=== PATIENT | male | born 1985 | race Caucasian/White ===

== ENCOUNTER 2021-11-12 22:32 | Emergency (ER) | payer MEDICAID, SELFPAY ==
[2021-11-12 22:34] VITALS: BP 99/60; PULSE 88; RESP 18; TEMP 37.6; O2SAT 99; BMI 25.8
--- NOTE | 2021-11-12 23:05 | PC.NURSE ---
Seizure pads put in place
--- NOTE | 2021-11-12 23:10 | PC.NURSE ---
Patient given IV toradol and po tylenol for fever along with 1000mL NS. Pt is resting in bed with lights off. States he just wants to sleep.
[2021-11-12 23:46] LABS: Coronavirus 19, PCR Not Detected (NotDetected); Influenza A, PCR Not Detected (NotDetected); Influenza B, PCR Not Detected (NotDetected)
[2021-11-12 23:47] LABS: Basophils # 0.1 K/mm3 (0-0.2); Basophils % 0.7 % (0.1-2.0); Eosinophils # 0.1 K/mm3 (0.0-0.4); Eosinophils % 0.3 % (0.1-12.0); Hemoglobin 15.8 g/dL (14.1-18.0); Lymphocytes # 1.2 K/mm3 (0.7-4.5); Lymphocytes % 6.3 % (10-50); Mean Corpuscular HGB Conc 32.8 g/dL (31.8-35.4); Mean Corpuscular Hemoglobin 28.8 pg (27.0-31.2); Mean Corpuscular Volume 87.7 fl (80-94); Mean Platelet Volume 8.7 fl (7.4-10.4); Monocytes # 1.2 K/mm3 (0.1-1.0); Neutrophils # 16.9 K/mm3 (1.8-7.8); Neutrophils % 86.7 % (37.0-80.0); Platelet Count 499 K/mm3 (142-424); Red Blood Count 5.48 M/mm3 (4.60-6.20); Red Cell Distribution Width 13.7 % (11.5-17.5); White Blood Count 19.5 K/mm3 (4.8-10.8)
[2021-11-12 23:50] LABS: MANUAL DIFFERENTIAL MANUAL DIFFERENTIAL (MANUAL DIFF)
[2021-11-12 23:51] LABS: Alanine Aminotransferase 51 U/L (12-78); Albumin Level 4.4 g/dl (3.5-5.0); Albumin/Globulin Ratio 1.2 (1.1-1.8); Alkaline Phosphatase 104 U/L (38-126); Anion Gap 9.7 mEq/L (5-15); Aspartate Amino Transferase 64 U/L (17-59); Bilirubin,Total 0.9 mg/dl (0.2-1.3); Blood Urea Nitrogen 19 mg/dl (9-20); Calcium 9.9 mg/dl (8.4-10.2); Carbon Dioxide 24 mmol/L (22.0-30.0); Chloride 107 mmol/L (98-107); Creatinine Clearance Estimated 125 mL/min (50-200); Estimated Glomerular Filt Rate 96 ml/min (>60); GFR (African American) 116 ML/MIN (>60); Globulin 3.7 g/dL (1.3-3.2); Glucose 109 mg/dl (74-100); Potassium 3.7 mmoL/L (3.5-5.1); Sodium 137 mmol/L (136-145); Total Protein,Serum 8.1 g/dl (6.3-8.2)
[2021-11-12 23:53] LABS: Lactic Acid 0.7 mmol/L (0.7-2.1)
[2021-11-12 23:56] LABS: C-Reactive Protein 1.8 mg/L (0-4)
[2021-11-12 23:57] LABS: Lymphocytes % 7 % (10-50); Monocytes % 3 % (2-9); Neutrophils % 81 % (42-76); Platelet Estimate Normal; RBC Morphology Normal; Total Cells Counted 100
[2021-11-12 23:58] LABS: Ethyl Alcohol < 10 mg/dl (0-10)
[2021-11-13 00:14] LABS: Erythrocyte Sedimentation Rate 2 mm/hr (0-15)
[2021-11-13 00:19] LABS: Acetaminophen 13 ug/ml (10-30); Salicylate < 1.0 mg/dL (2.0-20.0)
--- NOTE | 2021-11-13 00:38 | PC.NURSE ---
Pt given pillow for comfort and lights turned off per request.
--- NOTE | 2021-11-13 01:27 | [facility].EDSEIZ ---
ED Disposition Clinical Impression: IVDU (intravenous drug user), Seizure-like activity Disposition: Left Against Medical Advice Condition on Discharge: Good Instructions: DI for Seizure (Not Epilepsy/Seizure Disorder) Additional Instructions: see pcp in am or return to ed Referrals: Provider,Referral, [Primary Care Provider] - - Critical Care Critical Care Time: No Attestation: On 11/12/21, the high probability of a clinically significant, sudden or life threatening deterioration of the following system(s) required my full and direct attention, intervention and personal management. The time I documented below is in addition to time spent performing reported procedures but includes the following listed in this critical care notation. Medical Decision Making - Medical Records Medical records reviewed: Yes: I reviewed the patient's medical records. - Richard Inquiry Pt receiving controlled substance: No Vital Signs: 11/12/21 22:34 Temperature 99.7 F H Temperature Source Oral Pulse Rate [Apical] 88 Respiratory Rate 18 Blood Pressure [Right Arm] 99/60 L Blood Pressure Mean [Right Arm] 73 Blood Pressure Source [Right Arm] Automatic Cuff Blood Pressure Position [Right Arm] Sitting 02 Sat by Pulse Oximetry 99 Oxygen Delivery Method Room Air - Lab Data Lab results reviewed: Yes: I reviewed the patient's lab results. Lab Results 11/12/21 22:44: WBC 19.5 H, RBC 5.48, Hgb 15.8, Hct 48.0, MCV 87.7, MCH 28.8, MCHC 32.8, RDW 13.7, Plt Count 499 H, MPV 8.7, Neut % (Auto) 86.7 H, Lymph % (Auto) 6.3 L, [place] % (Auto) 6.0, Eos % (Auto) 0.3, Baso % (Auto) 0.7, Neut # (Auto) 16.9 H, Lymph # (Auto) 1.2, [place] # (Auto) 1.2 H, Eos # (Auto) 0.1, Baso # (Auto) 0.1, Total Counted 100, Neutrophils % (Manual) 81 H, Band Neutrophils % 9.0 H, Lymphocytes % (Manual) 7 L, Monocytes % (Manual) 3, Platelet Estimate Normal, RBC Morphology Normal, ESR 2 11/12/21 22:44: Sodium 137, Potassium 3.7, Chloride 107, Carbon Dioxide 24, Anion Gap 9.7, BUN 19, Creatinine 0.90, Estimated Creat Clear 125, Estimated GFR 96, Est GFR ( Amer) 116, Glucose 109 H, Calcium 9.9, Total Bilirubin 0.9, AST 64 H, ALT 51, Alkaline Phosphatase 104, C-Reactive Protein 1.8, Total Protein 8.1, Albumin 4.4, Globulin 3.7 H, Albumin/Globulin Ratio 1.2, Procalcitonin 45.0 H, Salicylates < 1.0 L, Acetaminophen 13 11/12/21 22:44: Lactate 0.7 11/12/21 22:44: SARS-CoV-2 (PCR) Not detected, Influenza A Untype (PCR) Not detected, Influenza Type B (PCR) Not detected 11/12/21 22:44: Plasma/Serum Alcohol < 10 Result diagrams: 11/12/21 22:44 11/12/21 22:44 Orders (Tests/Meds): ED MEDICATIONS Generic Name Dose Route Start Last Admin Trade Name Freq PRN Reason Stop Dose Admin Sodium Chloride 1,000 mls @ 999 mls/hr 11/12/21 23:15 11/12/21 23:04 Sod Chlor 0.9% 1000ml Bag IV 11/13/21 00:15 999 mls/hr .[id number] JHONAA Administration Discontinued Medications Generic Name Dose Route Start Last Admin Trade Name Freq PRN Reason Stop Dose Admin Acetaminophen 1,000 mg 11/12/21 23:01 11/12/21 23:04 Acetaminophen 500mg Tab PO 11/12/21 23:02 1,000 mg ONCE ONE Administration Ketorolac Tromethamine 30 mg 11/12/21 23:01 11/12/21 23:03 Ketorolac 30mg/Ml Vial IV 11/12/21 23:02 30 mg ONCE ONE Administration ORDERS Category Date Time Status CT cervical spine w con Stat Cat Scan 11/13/21 01:[address] head/brain wo con Stat Cat Scan 11/13/21 01:[address] lumbar spine w con Stat Cat Scan 11/13/21 01:[address] thoracic spine w con Stat Cat Scan 11/13/21 01:27 Ordered XR chest portable Stat Exams 11/13/21 01:27 Ordered Drug Screen,Urine Stat Lab 11/12/21 23:43 Ordered Urinalysis and Microscopic Stat Lab 11/13/21 01:27 Ordered Blood Culture Stat Micro 11/12/21 22:44 Received Medical Decision Narrative: pt with ivdu and has inc wbc and inc procal and left ama prior to completion of eval Seizures HPI - General C
--- NOTE | 2021-11-13 01:30 | PC.NURSE ---
Patient refusing to have images done and to give urine sample. He is requesting that we contact his grandfather to come pick him up. No answer voice mail left will continue to try and contact grandfather. IV removed by Alison Estrada due to patient attempting to get out of bed.
--- NOTE | 2021-11-13 01:39 | PC.NURSE ---
patient refused to remain in the ED, patient left AMA, paperwork signed
[2021-11-13 01:53] VITALS: BP 120/65; PULSE 78; RESP 18; TEMP 36.8; O2SAT 99
--- NOTE | 2021-11-13 01:54 | INFXCTL.NOTE ---
Pt left hospital ama at 0137. Returned to ER at 0155 c c/o not having anywhere else to go. Cassia bland contacted and agrees to give patient a ride home.
== END 2021-11-13 01:55 | disposition left against medical advice (07) ==
PROVIDERS: Emergency Provider Emergency Medicine
DX: R56.9 Unspecified convulsions (principal); F11.90 Opioid use, unspecified, uncomplicated; Z53.29 Procedure and treatment not carried out because of patient's decision for other reasons; Z20.822 Contact with and (suspected) exposure to COVID-19
CPT/HCPCS: 80053; 80329; 83605; 84145; 85007; 85025; 85651; 86140; 87040; 99284; C9803; U0003; U0005